=== PATIENT | female | born 1995 | race Caucasian/White ===

== ENCOUNTER 2016-12-21 23:20 | Inpatient (IN) | payer OTHER ==
[~2016-12-21] VITALS: Ht 177.8 cm; Wt 64.4 kg
--- NOTE | 2016-12-21 23:30 | NUR ---
PT OPENED EYES SPONTANEOUSLY AND SAT UP ON HER OWN. PT COUGHED OUT THICK YELLOW SPUTUM. PT POSITIONED WITH HOB UP; NO SIGNS OF RESP DISTRESS. PT MOVED HEAD AWAY WHEN I ATTEMPTED TO PLACE OXYGEN MASK OVER FACE
--- NOTE | 2016-12-21 23:30 | NUR ---
NARCAN 2MG IM TO L LATERAL THIGH GIVEN PER DR GREEN ORDER. IV EST IN PLACE (2312); NARCAN 2MG IVP GIVEN AT 2315
--- NOTE | 2016-12-21 23:30 | NUR ---
PT WHEELED IN ON ED GURNEY RAPIDLY FROM LOBBY FOR BEING UNRESPONSIVE PER DIVISION SUPERINTENDENT SHAHIDA WISEMAN. PT LIMP ON GURNEY WITH LIPS AND EXTREMITIES CYANOTIC AND SKIN PALE AND COOL THROUGHOUT. PT PLACED IMMED ON MONITORS
--- NOTE | 2016-12-21 23:35 | NUR ---
LIPS PINK AND EXTREMITIES NO LONGER CYANOTIC
--- NOTE | 2016-12-21 23:41 | NUR ---
DR GREEN AT BEDSIDE FOR REASSESSMENT OF PT. PT ASKED IF SHE USED HEROIN BY DOCTOR -SHE REPLIED NO
[2016-12-21 23:46] LABS: BASOPHIL % 0.3 % (0-2); CALCIUM 8.5 mg/dL (8.5-10.1); CARBON DIOXIDE 26.2 mmol/L (21-32); CHLORIDE SERUM 104 mmol/L (98-107); CREATININE SERUM 1.4 mg/dL (0.6-1.0); GFR1 50 mL/min; GLUCOSE SERUM 243 mg/dL (74-106); PLATELET COUNT 308 x10^3mcL (130-400); POTASSIUM SERUM 4.8 mmol/L (3.5-5.1); RED CELL DISTRIBUTION WIDTH 14.5 % (11.5-14.5); SODIUM SERUM 142 mmol/L (136-145)
[2016-12-21 23:58] LABS: AMPHETAMINE QUAL UR POSITIVE (NEG <=1000)
[2016-12-21 23:59] LABS: ALBUMIN 3.8 g/dL (3.4-5.0); ALKALINE PHOSPHATASE 124 U/L (46-116); ALT/SGPT 194 U/L (14-59); AST/SGOT 221 U/L (15-37); BILIRUBIN TOTAL 0.3 mg/dL (0.20-1.00); TOTAL PROTEIN, SERUM 6.9 g/dL (6.4-8.2)
--- NOTE | 2016-12-22 00:10 | NUR ---
REMAINS ON GURNEY, WITH EYES CLOSED; EASY TO AROUSE AWAKE; REMAINS WITH HOB UP 45 DEGREES
[2016-12-22 00:58] LABS: UA SPECIFIC GRAVITY >=1.030 (1.005-1.035); microscopic required? YES; urine erythrocyte NEGATIVE (NEGATIVE)
--- NOTE | 2016-12-22 01:04 | NUR ---
THE MALE WHO DROPPED OFF PT CALLED FROM # AND REQUESTED INFORMATION. MALE DID NOT STATE HIS NAME BUT STATED "SHE'S NOT MY GIRLFRIEND BUT YOU KNOW, WE'RE KIND OF SEEING EACH OTHER." MALE HUNG UP PHONE WHEN I INFORMED HIM I COULD NOT PROVIDE INFORMATION REGARDING OVER PHONE.
--- NOTE | 2016-12-22 01:21 | NUR ---
REPROT GIVEN TO KAMLA Victoria RN
--- NOTE | 2016-12-22 01:35 | NUR ---
RECIEVED REPORT FROM JAIR RN TO ASSUME CARE OF PT. PT LAYING IN GURENY IN POSTION OF COMFORT, RESP EVEN AND UNLABORED, NO ACUTE DISTRESS NOTED
--- NOTE | 2016-12-22 02:02 | NUR ---
ROCEPHIN INFUSING VIA IV PUMP PER MD ORDERS. PT DENIED ANY ALLERGIES PRIOR TO ADMINISTRATION, EDUCATED PT ON S/S OF ADVERSE REACTIONS, VERBALIZED UNDERSTANDING. BEDSIDE RAILS UP FOR SAFETY, CALL MARTINES WITHIN REACH
[2016-12-22 02:37] VITALS: BP 102/60
--- NOTE | 2016-12-22 02:38 | NUR ---
REPORT GIVEN TO DOTTIE MATTHEWS TO ASSUME CARE OF PT
[2016-12-22 03:04] LABS: T3 TOTAL 1.57 ng/mL
[2016-12-22 03:05] LABS: FREE T4 0.89 ng/dL (0.76-1.46); FREE THYROXINE INDEX 2.9 ug/dL (1.4-4.5); T4(THYROXINE) 8.7 ug/dL (4.7-13.3)
--- NOTE | 2016-12-22 03:10 | NUR ---
RECEIVED PATIENT FROM ED [facility]IA [employer], IN NO ACUTE DISTRESS, NO C/O PAIN OR SOB AT THIS TIME, ORIENTED PATIENT TO ROOM AND SURROUNDINGS, BED IN LOW POSITION, BED RAILS UP X 2, CALL LIGHT WITHIN REACH, WILL ENDORSE CARE TO ALCIRA MATTHEWS
--- NOTE | 2016-12-22 03:33 | NUR ---
REC'D REPORT FROM HADLEY MATTHEWS. PT AAOX4, SPEECH CLEAR. ON TELE # 6, DENIES CP, PALPITATIONS OR DIZZINESS. NO SIGNS OF DISTRESS NOTED. BREATHING EVEN/UNLABORED. ON REG DIET. INFORMED PT SHE WILL BE NPO FOR US ABDOMEN. ALREADY EATING SANDWICH, SO JELLO, PUDDING, APPLESAUCE, AND APPLE JUICE GIVEN. INSTRUCTED PT SHE WILL BE NPO AFTER EATING SNACKS. PT VERBALIZED UNDERSTANDING. ORIENTED TO SURROUNDINGS AND DEVICES. CALL LIGHT WITHIN REACH, BED AT LOWEST POSITION, SITTER AT BEDSIDE. WILL CONTINUE TO MONITOR.
--- NOTE | 2016-12-22 03:47 | NUR ---
PT VOMITED 600 ML. LIQUID WITH FOOD PARTICLES. ZOFRAN GIVEN. WILL MONITOR FOR RELIEF.
[2016-12-22 05:36] VITALS: BP 95/57
--- NOTE | 2016-12-22 06:10 | NUR ---
PT RESTING COMFORTABLY IN BED. NO SIGNS OF DISTRESS NOTED. BREATHING EVEN/UNLABORED. NO NAUSEA OR MORE EPISODES OF VOMITING. INFORMED US PT LAST ATE @ 0400. PT NPO FOR US ABD, PT AWARE. WISHES TO SHOWER LATER. CALL LIGHT WITHIN REACH, BED AT LOWEST POSITION. WILL ENDORSE TO DAY SHIFT NURSE.
[2016-12-22 06:11] LABS: BASOPHIL % 0.3 % (0-2); PLATELET COUNT 230 x10^3mcL (130-400); RED CELL DISTRIBUTION WIDTH 14.3 % (11.5-14.5)
[2016-12-22 06:27] LABS: CALCIUM 7.8 mg/dL (8.5-10.1); CARBON DIOXIDE 27.7 mmol/L (21-32); CHLORIDE SERUM 107 mmol/L (98-107); CREATININE SERUM 0.8 mg/dL (0.6-1.0); GFR1 > 60 mL/min; GLUCOSE SERUM 93 mg/dL (74-106); MAGNESIUM 2.2 mg/dL (1.8-2.4); PHOSPHOROUS 4.8 mg/dL (2.5-4.9); POTASSIUM SERUM 3.9 mmol/L (3.5-5.1); SODIUM SERUM 140 mmol/L (136-145)
--- NOTE | 2016-12-22 07:34 | NUR ---
RECEIVED PT LAYING IN BED ASLEEP. NO APPARENT SIGNS OF DISTRESS NOTED. BREATHING UNLABORED. IV SITE PATENT AND INFUSING WELL; IV TUBING LABELLED. INFORMATION BOARD UPDATED. CALL LIGHT WITHIN REACH. WILL CONTINUE TO MONITOR
[2016-12-22 09:30] VITALS: BP 105/52
[2016-12-22 12:55] VITALS: BP 105/54
[2016-12-22] MEDS ORDERED: LAC PO (14:35)
[2016-12-22] MEDS ORDERED: CIPRO500 MG PO (14:35)
[2016-12-22 14:42] VITALS: BP 105/54
--- NOTE | 2016-12-22 15:00 | NUR ---
PT WAS DISCHARGED. WENT OVER PT TEACHING AND DISCHARGE INSTRUCTIONS. IV ACCESS DISCONTINUED. NO APPARENT SIGNS OF ACUTE DISTRESS NOTED AT THIS TIME. PT ESCORTED OUT BY NURSING STAFF.
== END 2016-12-22 14:50 | disposition home or self-care (01) | DRG 52 ==
LOC: ED 23:20 → EDBD 23:20 → DU 12-22 02:03
PROVIDERS: Emergency Medicine; ADMIT Family Medicine
DX: G92 Toxic encephalopathy (principal); N17.0 Acute kidney failure with tubular necrosis; F19.10 Other psychoactive substance abuse, uncomplicated; N39.0 Urinary tract infection, site not specified; D72.828 Other elevated white blood cell count; R80.8 Other proteinuria; B19.20 Unspecified viral hepatitis C without hepatic coma; F15.10 Other stimulant abuse, uncomplicated; Z72.0 Tobacco use; E02 Subclinical iodine-deficiency hypothyroidism; R73.9 Hyperglycemia, unspecified
CPT/HCPCS: 80307; 83880; 84439; G0480; J0696; J2060; J2310; J2405; J3490; J7030; Q0092